=== PATIENT | male | born 2000 | race Caucasian/White ===

== ENCOUNTER 2020-06-04 11:11 | Emergency (ER) | payer BC ==
[2020-06-04] MEDS ORDERED: Lidocaine 1% w/Epinephrine 1:100K 20 ML VIAL ONE (11:32)
== END 2020-06-04 12:10 | disposition home or self-care (01) ==
LOC: ERS 11:11
DX: L02.31 Cutaneous abscess of buttock (principal)
CPT/HCPCS: 46050